=== PATIENT | male | born 2005 | race African-American/Black ===

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

== ENCOUNTER 2023-12-26 18:20 | Emergency (ER) | payer SELFPAY ==
[~2023-12-26] VITALS: Ht 190.5 cm; Wt 99.7 kg
[~2023-12-26 18:20] MED LIST changes: +BACTRIM DS1 TAB PO
[2023-12-26 18:25] VITALS: BP 134/93
[2023-12-26 18:31] VITALS: BP 124/86
[2023-12-26] MEDS ORDERED: BACITRACIN BASE 15 GM TUBE TOP ONE (18:35)
[2023-12-26] MEDS ORDERED: MOTRIN800 MG PO (18:38)
[2023-12-26 18:46] VITALS: BP 122/81
== END 2023-12-26 18:48 | disposition home or self-care (01) | DRG 605 ==
LOC: ED 18:20
DX: S91.212A Laceration without foreign body of left great toe with damage to nail, initial encounter (principal); J45.909 Unspecified asthma, uncomplicated; W20.8XXA Other cause of strike by thrown, projected or falling object, initial encounter; Y92.89 Other specified places as the place of occurrence of the external cause; Y99.0 Civilian activity done for income or pay